=== PATIENT | female | born 1960 | race Caucasian/White ===

== ENCOUNTER 2021-03-31 14:14 | Emergency (ER) | payer MEDICARE ==
[~2021-03-31] VITALS: Ht 167.6 cm; Wt 77.1 kg
[~2021-03-31 14:14] MED LIST: NAPROSYN500 MG PO
[2021-03-31 14:44] LABS: HEMOGLOBIN 13.8 gm/dl (12.3-15.3); RED BLOOD COUNT 4.26 M/UL (4.00-5.10); WHITE BLOOD COUNT 5.5 K/UL (4.5-11.0)
[2021-03-31 15:05] LABS: BUN/CREATININE RATIO 14 (0-10)
[2021-04-01 05:08] LABS: HEMOGLOBIN 15.8 gm/dl (12.3-15.3); RED BLOOD COUNT 4.8 M/UL (4.00-5.10); WHITE BLOOD COUNT 6.9 K/UL (4.5-11.0)
[2021-04-01 05:30] LABS: BUN/CREATININE RATIO 20 (0-10)
[2021-04-01] MEDS ORDERED: PHENYTOIN SODI100 MG PO ×3 (10:42→12:46)
[2021-04-01] MEDS ORDERED: CRESTOR20 MG PO (10:43)
[2021-04-01] MEDS ORDERED: ZONISAMIDE100 MG PO ×3 (10:44→12:41)
[2021-04-01] MEDS ORDERED: ULTRAM50 MG PO (10:48)
[2021-04-01] MEDS ORDERED: NAPROXEN500 MG PO (10:51)
[2021-04-01] MEDS ORDERED: ROPINIROLE HCL1 MG PO (10:51)
[2021-04-01] MEDS ORDERED: AMITRIPTYLINE H75 MG PO (10:52)
[2021-04-01] MEDS ORDERED: CBD PO (10:53)
[2021-04-01] MEDS ORDERED: CLONAZEPAM0.125 MG SL (10:56)
[2021-04-01] MEDS ORDERED: KENALOG CREAM 015 GM TOP (10:57)
[2021-04-01] MEDS ORDERED: RIZATRIPTAN10 M1 SL (10:59)
== END 2021-04-01 13:15 | disposition home or self-care (01) ==
LOC: ER1 14:14 → CDU 04-01 01:10 → ER1 04-01 01:10 → CDU 04-01 01:10
PROVIDERS: Emergency Medicine; Internal Medicine
DX: G40.909 Epilepsy, unspecified, not intractable, without status epilepticus (principal); M06.9 Rheumatoid arthritis, unspecified; I10 Essential (primary) hypertension; Z90.710 Acquired absence of both cervix and uterus; Z20.822 Contact with and (suspected) exposure to COVID-19
CPT/HCPCS: 0240U; 70450; 70551; 71045; 71046; 80053; 80185; 80307; 81001; 83605; 83690; 85025; 85027; 93005; 96372; 96374; 96375; 99285; G0378; J1650; J1953; J7030